=== PATIENT | female | born 1985 | race Caucasian/White ===

== ENCOUNTER 2018-07-27 03:47 | Emergency (ER) | payer OTHER ==
--- NOTE | 2018-07-27 04:16 | PDOC ---
History of Present Illness - General Chief Complaint: Injury Stated Complaint: LT KNEE PAIN Time Seen by Provider: 07/27/18 03:53 - History of Present Illness Initial Comments: 07/27/18 04:09 33yo F with no PMH presents to the ED with L knee pain. Pt states she had a panic attack in the middle of the night, ran out of her friends house and fell down a 3 foot ledge, landed on her feet, but then fell onto her L knee. Denies head strike or other injuries. Has not been able to walk on the knee due to pain. Pt states she drank "a lot" of alcohol today. Denies drug use. Denies recent fevers, chills, cp, sob, abd pain, headache, weakness/numbness. Past History - Past Medical History Allergies/Adverse Reactions: Allergies Allergy/AdvReac Type Severity Reaction Status Date / Time Sulfa (Sulfonamide Allergy Verified 07/27/18 06:50 Antibiotics) Home Medications: Ambulatory Orders NK [No Known Home Medication] 07/27/18 - Immunization History Td Vaccination: No - Suicide/Smoking/Psychosocial Hx Smoking Status: Yes Smoking History: Current some day smoker Number of Cigarettes Smoked Daily: 12 Review of Systems - Review of Systems Comments:: 07/27/18 04:11 GENERAL/CONSTITUTIONAL: No fever or chills. No weakness. HEAD, EYES, EARS, NOSE AND THROAT: No change in vision. No ear pain or discharge. No sore throat. GASTROINTESTINAL: No nausea, vomiting, diarrhea or constipation. GENITOURINARY: No dysuria, frequency, or change in urination. CARDIOVASCULAR: No chest pain or shortness of breath. RESPIRATORY: No cough, wheezing, or hemoptysis. MUSCULOSKELETAL: +L sided knee pain. No neck or back pain. SKIN: No rash NEUROLOGIC: No headache, vertigo, loss of consciousness, or change in strength/ sensation. ENDOCRINE: No increased thirst. No abnormal weight change. HEMATOLOGIC/LYMPHATIC: No anemia, easy bleeding, or history of blood clots. ALLERGIC/IMMUNOLOGIC: No hives or skin allergy. *Physical Exam - Physical Exam Comments: 07/27/18 04:19 GENERAL: Awake, alert, and fully oriented, appears uncomfortable. +AOB HEAD: No signs of trauma EYES: PERRLA, EOMI, sclera anicteric, conjunctiva clear ENT: Auricles normal inspection, hearing grossly normal, nares patent, oropharynx clear without exudates. Moist mucosa NECK: Normal ROM, supple, no lymphadenopathy, JVD, or masses LUNGS: Breath sounds equal, clear to auscultation bilaterally. No wheezes, and no crackles HEART: Regular rate and rhythm, normal S1 and S2, no murmurs, rubs or gallops ABDOMEN: Soft, nontender, normoactive bowel sounds. No guarding, no rebound. No masses EXTREMITIES: L knee held in flexion with midline patella. +ecchymosis and moderate edema inferior to patella. Unable to range knee due to pain. Unable to bear weight or fully extend the knee. Compartments soft. 2+ DP pulses. Full sensation, normal strength dorsi and plantar flexion. BACK: no midline cervical, thoracic, or lumbar ttp. NEUROLOGICAL: Normal speech, cranial nerves intact, equal strength and sensation SKIN: +superficial abrasions to knees b/l ED Treatment Course - LABORATORY CBC & Chemistry Diagram: 07/27/18 04:29 07/27/18 05:25 Medical Decision Making - Medical Decision Making 07/27/18 04:22 33yo F presents to the ED with L knee pain after a fall down a 3 foot ledge while intoxicated. No head strike, or other injuries. Vitals wnl. Pt currently clinically sober. Exam with L knee held in flexion with significant ecchymosis and edema inferior to patella. Compartments soft at this time, LLE is NVI. Pt unable to bear weight. States no chance she is , she just completed her period. Plan for percocet for pain control and XR to eval for bony injury/ dislocation. 07/27/18 06:09 XR on my read with comminuted tibial plateau fracture compartments remain soft, LLE NVI Labs, UPT ordered morphine 4mg given ortho consulted, awaiting call back 07/27/18 06:[address] Myers who will review films and call us back 07/27/18 06:[address] Myers on his way in to evaluate pt. Labs pending, UPT pending Once UPT back, will need CT knee w/o contrast Pain well controlled with IV morphine Tdap updated 6 years ago Pt and her mom updated on plan 07/27/18 06:59 Case signed out to oncoming attending for further mgmt/dispo *DC/Admit/Observation/Transfer Diagnosis at time of Disposition: Fall, Knee pain, left, Tibial plateau fracture, left - Discharge Dispostion Condition at time of disposition: Stable - Referrals - Patient Instructions - Post Discharge Activity
[2018-07-27 04:18] VITALS: BMI 18.3
[2018-07-27] MEDS ORDERED: morphine CARPU-JECT 4 MG/1 ML DISP.SYRIN IVPUSH ONE ×4 (05:15→10:42)
[2018-07-27] MEDS ORDERED: SODIUM CHLORIDE 1,000 ML IV STA (05:15)
[2018-07-27] MEDS ORDERED: morphine SULFATE 4 MG/ML VIAL ONE ×4 (05:29→10:42)
[2018-07-27 06:20] LABS: BASO % 0.9 % (0-2.0); EOS % 0.5 % (0-4.5); HEMATOCRIT 44.6 % (32.4-45.2); HEMOGLOBIN 15.1 GM/dL (10.7-15.3); LYMPH % 23.1 % (8-40); MCH 29.5 pg (25.7-33.7); MCHC 33.8 g/dl (32.0-36.0); MEAN CELL VOLUME 87.3 fl (80-96); MEAN PLT VOLUME 8.2 fl (7.5-11.1); MONO % 5.6 % (3.8-10.2); NEUT % 69.9 % (42.8-82.8); PLATELET COUNT 283 K/MM3 (134-434); RBC 5.11 M/mm3 (3.60-5.2); RDW 12.2 % (11.6-15.6); WHITE BLOOD COUNT 7.8 K/mm3 (4.0-10.0)
[2018-07-27 06:56] LABS: INR 1.05 (0.83-1.09); PROTHROMBIN TIME (PATIENT) 12.4 SEC (9.7-13.0)
--- NOTE | 2018-07-27 07:16 | PDOC ---
*Physical Exam - Vital Signs Last Vital Signs Temp Pulse Resp BP Pulse Ox 97.3 F L 84 18 109/72 100 07/27/18 03:47 07/27/18 03:47 07/27/18 03:47 07/27/18 03:47 07/27/18 03:47 ED Treatment Course - LABORATORY CBC & Chemistry Diagram: 07/27/18 04:29 07/27/18 07:20 - ADDITIONAL ORDERS Additional order review: Laboratory Results 07/27/18 07/27/18 07/27/18 05:25 05:25 04:29 PT with INR 12.40 INR 1.05 Sodium Cancelled Potassium Cancelled Chloride Cancelled Carbon Dioxide Cancelled Anion Gap Cancelled BUN Cancelled Creatinine Cancelled Creat Clearance w eGFR Cancelled Random Glucose Cancelled Calcium Cancelled Total Bilirubin Cancelled AST Cancelled ALT Cancelled Alkaline Phosphatase Cancelled Total Protein Cancelled Albumin Cancelled Serum , Qual Negative - Medications Given in the ED: ED Medications Discontinued Medications Generic Name Dose Route Start Last Admin Trade Name Freq PRN Reason Stop Dose Admin Sodium Chloride 1,000 mls @ 1,000 mls/hr 07/27/18 05:15 07/27/18 05:40 Normal Saline - IV 07/27/18 06:14 1,000 mls/hr ASDIR STA Administration Morphine Sulfate 4 mg 07/27/18 05:15 07/27/18 05:39 Morphine Injection - IVPUSH 07/27/18 05:16 4 mg ONCE ONE Administration Oxycodone/Acetaminophen 1 combo 07/27/18 04:18 07/27/18 04:21 Percocet 5/325 - PO 07/27/18 04:19 1 combo ONCE ONE Administration Medical Decision Making - Medical Decision Making 07/27/18 07:16 pt signed out from Dr Onofre at 7AM pending labs, Cr, CT knee and ortho cs. of note, 33 YOF s/p trip and fall last night while drinking, with left knee pain. found to have left proximal comminuted fx of tibia. CT knee confirms finding. placed in knee immobilizer already pain control here seen by orthopedics and evaluated, by Dr Myers. given extent of injury, comminuted prox tib fx - will warrant trauma orthopedics fixation. no e/o compartment syndrome, wiggles toes, NVI, skin warm, well perfused - continue with close monitoring. The risks and benefits of transfer to another facility were discussed with the patient and/or their family/significant other. The patient and /or family CONSENT TO TRANSFER. Specific Risks of Transfer Include: worsening of the patient's condition during the transfer process, which may lead to the patient's permanent disability or . Specific Benefits of Transfer Include: providing the patient with a higher level of care/specialized care not available at [facility]. Please see the Hospital TRANSFER FORM for further details of this patient's transfer. Calls made to arrange follow-up care. Dispo: transfer to [facility]. spoke with ortho attg, Dr Thurman, accepted. ED to ED transfer. 07/27/18 10:22 *DC/Admit/Observation/Transfer Diagnosis at time of Disposition: Fall Qualifiers: Encounter type: initial encounter Qualified Code(s): W19.XXXA - Unspecified fall, initial encounter Knee pain, left Qualifiers: Chronicity: acute Qualified Code(s): M25.562 - Pain in left knee Tibial plateau fracture, left Qualifiers: Encounter type: initial encounter Fracture type: closed Qualified Code(s): S82.142A - Displaced bicondylar fracture of left tibia, initial encounter for closed fracture - Discharge Dispostion Disposition: TRANSFER ACUTE CARE/OTHER HOSP Condition at time of disposition: Stable - Referrals - Patient Instructions - Post Discharge Activity - Transfer to Acute Care Facility Receiving Facility: [facility]. Transfer comment: 07/27/18 10:14 ED transfer, accepted by ortho Dr Thurman 07/27/18 10:14
--- NOTE | 2018-07-27 08:03 | CONSULT ---
Consult - text type - Consultation Consultation Note: ORTHOPEDIC SURGERY CONSULTATION NOTE Department of Orthopedic Surgery HISTORY OF PRESENT ILLNESS Loli Mariscal is a 33 year old female who presents to [facility] ED with left knee pain. The orthopedic service was consulted for a left tibial plateau fracture. The injury occurred today after a fall down a 3 foot ledge. The patient notes sharp and throbbing pain to the left knee. Denies any other injuries. Denies numbness, tingling or other constitutional complaints. Endorses tobacco use and alcohol abuse. Active Problems Problem Status Category Onset Fall Acute Medical Knee pain, left Acute Medical Tibial plateau fracture, left Acute Medical Social History Smoking history Current some day smoker Aproximately how many 12 cigarettes per day Allergies Allergy/AdvReac Type Severity Reaction Status Date / Time Sulfa (Sulfonamide Allergy Verified 07/27/18 06:50 Antibiotics) Vital Signs (last) Temp Pulse Resp BP Pulse Ox 97.3 F L 84 18 109/72 100 07/27/18 03:47 07/27/18 03:47 07/27/18 03:47 07/27/18 03:47 07/27/18 03:47 Intake and Output 07/25/18 07/26/18 07/27/18 23:59 23:59 23:59 Other: Weight 110 lb Height 5 ft 5 in Body Mass Index (BMI) 18.3 Weight Measurement Method Est/Stated by Patient Laboratory 07/27/18 04:29 07/27/18 05:25 PT with INR 12.40 SEC (9.7-13.0) 07/27/18 04:29 PTT (Actin FS) 28.0 SECONDS (25.2-36.5) 07/27/18 04:29 FAMILY HISTORY Noncontributory REVIEW OF SYMPTOMS A twelve-point review of systems was performed and was negative except as noted in HPI. PHYSICAL EXAM Constitutional: Alert and oriented to person, place, and time. Appears well- developed and well-nourished. No acute distress, appropriate mood and affect. HEENT: Normocephalic, atraumatic Left Lower Extremity: Small abrasion over left knee. Skin warm, dry, and intact. swelling present. Muscle mass equal and symmetric to contralateral side. No atrophy noted. Left knee effusions noted. Tender to palpation at left proximal tibia; nontender throughout rest of extremity. No cords or calf tenderness. No significant calf/ankle edema. ROM deferred. EHL/TA/GS motor intact; SILT distally; 2+ PT pulses; Cap refill brisk. Right Lower Extremity: No tenderness to palpation. No cords or calf tenderness. No significant calf/ankle edema. Full passive and active ROM, free from pain. 2 + PT pulses; Cap refill brisk. Right Upper Extremity: No tenderness to palpation. Full passive and active ROM, free from pain. Left Upper Extremity: No tenderness to palpation. Full passive and active ROM, free from pain. Ankle brachial index of 1 IMAGING I personally reviewed all radiographs and CT images. They demonstrate a left comminuted tibial plateau fracture involving both condyles with metaphyseal/ diaphyseal dissociation. ASSESSMENT AND PLAN Loli Mariscal is a 33 year old female presenting status post mechanical fall with a left sided closed tibial plateau fracture. We have reviewed the imaging and clinical findings in detail, as well as their potential implications. This is an operative fracture. After informed consent, the patient was placed in a bulky Rush dressing and knee immobilizer. Her leg compartments are soft and compressible and she is resting comfortably. Skin has no fracture blisters. Ankle-brachial index performed in ED was normal. Low suspicion for vascular injury or impending compartment syndrome. Unable to perform CT angio at this hospital, however current exam does not warrant one. Recommend transfer to [facility] for observation and definitive fixation - Pain control - Keep splint C/D/I - Monitor compartments and vascular status All questions were answered. Thank you for involving our team in the care of this patient. Please call us at [phone] with questions
[2018-07-27 08:34] LABS: ALBUMIN 3.7 g/dl (3.4-5.0); ALK PHOS 83 U/L (45-117); ANION GAP 13 MMOL/L (8-16); BILIRUBIN,TOTAL 0.3 mg/dl (0.2-1); BLOOD UREA NITROGEN 7 mg/dl (7-18); CHLORIDE 109 mmol/L (98-107); CO2 19 mmol/L (21-32); CREATININE 0.6 mg/dl (0.55-1.3); GLUCOSE,RANDOM 84 mg/dl (74-106); POTASSIUM 3.8 mmol/L (3.5-5.1); SGOT/AST 20 U/L (15-37); SGPT/ALT 15 U/L (13-61); SODIUM 141 mmol/L (136-145); TOT PROT 6.6 g/dl (6.4-8.2)
[2018-07-27 10:35] VITALS: BP 114/70; PULSE 85; TEMP 98.2
[2018-07-27] MEDS ORDERED: ONDANSETRON 4 MG/2 ML VIAL IVPUSH ONE (10:44)
[2018-07-27] MEDS ORDERED: ONDANSETRON 4 MG/2 ML VIAL ONE (10:45)
== END 2018-07-27 11:11 | disposition short-term general hospital (02) ==
LOC: FER 03:47
PROC: 2W3RX1Z Immobilization of Left Lower Leg using Splint (ICD-10-PCS; principal; 2018-07-27)
PROC: 3E033NZ Introduction of Analgesics, Hypnotics, Sedatives into Peripheral Vein, Percutaneous Approach (ICD-10-PCS; 2018-07-27)
PROC: 3E0337Z Introduction of Electrolytic and Water Balance Substance into Peripheral Vein, Percutaneous Approach (ICD-10-PCS; 2018-07-27)
DX: S82.142A Displaced bicondylar fracture of left tibia, initial encounter for closed fracture (principal); W17.89XA Other fall from one level to another, initial encounter; Y93.89 Activity, other specified; Y92.008 Other place in unspecified non-institutional (private) residence as the place of occurrence of the external cause; Z88.2 Allergy status to sulfonamides; F17.210 Nicotine dependence, cigarettes, uncomplicated
CPT/HCPCS: 36415; 73564-TC-LT-FY; 73590-TC-LT-FY; 73700-TC-RT; 80053; 84703; 85025; 85610; 85730; 86850; 86900; 86901; 99284-25; J7030

== ENCOUNTER 2022-11-22 13:39 | Inpatient (IN) | payer BC, OTHER ==
[2022-11-22 13:44] VITALS: BMI 29.5
[2022-11-22] MEDS ORDERED: AMPICILLIN SODIUM 250 MG VIAL IVPUSH ONE (14:19)
[2022-11-22] MEDS ORDERED: AMPICILLIN NA/SULBACTAM NA 3 GM VIAL ONE (14:34)
[2022-11-22 14:49] LABS: ALBUMIN 2.5 g/dl (3.4-5.0); BILIRUBIN,TOTAL 0.4 mg/dl (0.2-1); CALCIUM 8.9 mg/dl (8.5-10); CREATININE 0.8 mg/dl (0.55-1.3); HEMATOCRIT 37.4 % (32.4-45.2); HEMOGLOBIN 12.7 G/dL (10.7-15.3); MCH 28.9 pg (25.7-33.7); MCHC 34.1 g/dl (32.0-36.0); MEAN CELL VOLUME 84.8 fl (80-96); MEAN PLT VOLUME 9.6 fl (7.5-11.1); PLATELET COUNT 344.3 10^3/uL (134-434); POTASSIUM 3.3 mmol/L (3.5-5.1); RBC 4.41 10^6/uL (3.60-5.2); RDW 13.1 % (11.6-15.6); TOT PROT 6.2 g/dl (6.4-8.2); WHITE BLOOD COUNT 15.5 10^3/uL (4.0-10.8)
[2022-11-22 15:36] LABS: PLATELET ESTIMATE ADEQUATE
[2022-11-22] MEDS ORDERED: BENZOCAINE 20% 57 GM BOTTLE TP PRN (16:03)
[2022-11-22] MEDS ORDERED: BENZOCAINE 28 GM HEMORRHOIDAL OINTMENT TP PRN (16:03)
[2022-11-22] MEDS ORDERED: ACETAMINOPHEN 325 MG TABLET (FP) PO PRN (16:03)
[2022-11-22] MEDS ORDERED: BISACODYL 10 MG SUPP.RECT RC PRN (16:03)
[2022-11-22] MEDS ORDERED: METHYLERGONOVINE MALEATE 0.2 MG/1 ML AMP IM PRN (16:03)
[2022-11-22] MEDS ORDERED: WITCH HAZEL 50% (TUCKS) 40 PAD/JAR PAD TP PRN (16:03)
[2022-11-22] MEDS ORDERED: ELECTROLYTE-148 SOLN 1,000 ML IV SCH (16:15)
[2022-11-22] MEDS ORDERED: OXYTOCIN 20 UNITS in 0.9% NS 20 UNIT/1,000 ML INFUS.BAG IV SCH (16:15)
[2022-11-22 16:52] LABS: BASO % 0.3 % (0-2.0); HEMATOCRIT 36.6 % (32.4-45.2); HEMOGLOBIN 11.8 GM/dL (10.7-15.3); LYMPH % 5.8 % (8-40); MCH 26.9 pg (25.7-33.7); MCHC 32.2 g/dl (32.0-36.0); MEAN CELL VOLUME 83.3 fl (80-96); MEAN PLT VOLUME 9.5 fl (7.5-11.1); MONO % 3.7 % (3.8-10.2); NEUT % 90.2 % (42.8-82.8); PLATELET COUNT 302 10^3/uL (134-434); RBC 4.39 M/mm3 (3.60-5.2); RDW 11.8 % (11.6-15.6); WHITE BLOOD COUNT 20.5 K/mm3 (4.0-10.0)
[2022-11-22] MEDS: IBUPROFEN 600 MG TABLET (FP) PO PRN (16:53)
[2022-11-22] MEDS ORDERED: IBUPROFEN 600 MG TABLET (FP) PO ONE (16:54)
[2022-11-22 16:58] LABS: ACTIVATED PTT 28.7 SECONDS (25.2-36.5); INR 0.95 (0.83-1.09)
[2022-11-22 17:14] LABS: POTASSIUM 3.9 mmol/L (3.5-5.1)
[2022-11-22 17:15] LABS: CALCIUM 8.9 mg/dL (8.5-10.1)
[2022-11-22 17:16] LABS: BLOOD UREA NITROGEN 8.8 mg/dL (7-18)
[2022-11-22 17:19] LABS: CREATININE 0.8 mg/dL (0.55-1.3)
[2022-11-22 17:41] LABS: HEPATITIS B SURFACE AG MATERN NON-REACTIVE (NONREACTIVE)
[2022-11-22 18:10] LABS: HIV INTERPRETATION NEGATIVE (NEGATIVE)
[2022-11-22 19:06] LABS: ANISOCYTOSIS 1+; MACROCYTOSIS 0
[2022-11-22 20:20] LABS: URINE AMPHETAMINES NEGATIVE (NEGATIVE)
[2022-11-22 20:21] LABS: COCAINE, UR NEGATIVE (NEGATIVE); METHADONE, UR NEGATIVE (NEGATIVE); OPIATES, URI NEGATIVE (NEGATIVE); PHENCYCLIDINE,URINE NEGATIVE (NEGATIVE); URINE BARBITURATES NEGATIVE (NEGATIVE); URINE BENZODIAZEPINES NEGATIVE (NEGATIVE)
[2022-11-22 20:22] LABS: EPI CELLS 8 /uL (0-25.1); HYALINE CASTS 0 /uL (0-3.1); PH,URINE 5.5 (5.0-8.0); URINE APPEARANCE CLOUDY; URINE BACTERIA 1 /uL (0-1359); URINE BILIRUBIN NEGATIVE (NEGATIVE); URINE COLOR RED; URINE GLUCOSE (UA) NEGATIVE (NEGATIVE); URINE KETONE 3+ (NEGATIVE); URINE LEUK ESTERASE 1+ (NEGATIVE); URINE NITRITE NEGATIVE (NEGATIVE); URINE PROTEIN 1+ (NEGATIVE); URINE RBC 18059 /uL (0-23.9); URINE UROBILINOGEN 0.2 mg/dL (0.2-1.0); URINE WBC 69 /uL (0-25.8)
[2022-11-22] MEDS: FAMOTIDINE 20 MG TABLET PO PRN (20:31)
[2022-11-23 03:19] VITALS: RESP 18
[2022-11-23 08:02] VITALS: BP 127/90; PULSE 73; TEMP 98
[2022-11-23 09:37] LABS: BASO % 0.6 % (0-2.0); EOS % 0.2 % (0-4.5); HEMATOCRIT 34.9 % (32.4-45.2); HEMOGLOBIN 11.3 GM/dL (10.7-15.3); LYMPH % 15.5 % (8-40); MCH 27.2 pg (25.7-33.7); MCHC 32.5 g/dl (32.0-36.0); MEAN CELL VOLUME 83.7 fl (80-96); MEAN PLT VOLUME 9.3 fl (7.5-11.1); MONO % 5.9 % (3.8-10.2); NEUT % 77.8 % (42.8-82.8); PLATELET COUNT 299 10^3/uL (134-434); RBC 4.17 M/mm3 (3.60-5.2); RDW 11.9 % (11.6-15.6)
[2022-11-23] MEDS: IBUPROFEN 600 MG TABLET (FP) PO PRN (09:49)
[2022-11-23] MEDS: FAMOTIDINE 20 MG TABLET PO PRN (09:50)
[2022-11-23] MEDS ORDERED: PRENATAL VITAMINS W/ FOLIC ACID TABLET (FP) PO SCH (10:00)
[2022-11-23] MEDS ORDERED: SENNOSIDES/DOCUSATE COMBO (SENNA PLUS) TABLET (UD) PO PRN (22:00)
== END 2022-11-23 13:09 | disposition home or self-care (01) | DRG 807 ==
LOC: FER 13:39 → JLDR 13:40 → UNDOADMIN 15:35 → J3W 18:10
PROVIDERS: ADMIT Obstetrics & Gynecology; ATTEND Obstetrics & Gynecology
PROC: 10E0XZZ Delivery of Products of Conception, External Approach (ICD-10-PCS; principal; 2022-11-22)
DX: O60.23X0 Term delivery with preterm labor, third trimester, not applicable or unspecified (principal); Z37.0 Single live birth; Z3A.35 35 weeks gestation of pregnancy
CPT/HCPCS: 36415; 80048; 80053; 80307; 81003; 85025; 85027; 85461; 85610; 85730; 86780; 86850; 86900; 86901; 86999; 87340; 87389; 99285-25